=== PATIENT | female | born 2000 | race Caucasian/White ===

== ENCOUNTER → 2019-10-03 | Outpatient (CLI) | payer OTHER ==
[2019-10-03 13:11] LABS: BACTERIA (WET MOUNT) 4+ BACTERIA SEEN; EPITHELIALS (WET MOUNT) 4+ EPITHELIALS SEEN; T.VAGINALIS (WET MOUNT) NO TRICHOMONAS SEEN; WBCS (WET MOUNT) 2+ WBCS SEEN; YEAST (WET MOUNT) NO YEAST SEEN
== END ==
LOC: LAB 13:00
PROVIDERS: ATTEND Nurse Practitioner Acute Care
DX: R30.0 Dysuria (principal)
CPT/HCPCS: 87086; 87210

== ENCOUNTER 2019-10-22 09:04 | Day surgery (SDC) | payer OTHER ==
[~2019-10-22 09:04] MED LIST: LACTATED RINGERS 1000 ML IV PRN; LEVOFLOXACIN 500 MG/D5W RTU 500 MG/100 ML RTUPB IV PRN; LIDOCAINE 0.5% INJ-PF (5 MG/ML) 50 ML SDV SUBCUT PRN
[2019-10-22] MEDS ORDERED: DEXAMETHASONE SOD PHOS INJ 10 MG/1 ML VIAL ONE (10:01)
[2019-10-22] MEDS ORDERED: SUCCINYLCHOLINE CHLORIDE INJ 200 MG/10 ML VIAL ONE (10:01)
[2019-10-22] MEDS ORDERED: MIDAZOLAM 2 MG/2 ML INJ ONE (10:01)
[2019-10-22] MEDS ORDERED: ONDANSETRON HCL INJ/PF 4 MG/2 ML SDV ONE (10:01)
[2019-10-22] MEDS ORDERED: PROPOFOL INJ 200 MG/20 ML VIAL IV ONE (10:01)
[2019-10-22] MEDS ORDERED: RINGERS SOLUTION,LACTATED 200 ML IV PRN (10:04)
[2019-10-22] MEDS ORDERED: SCOPOLAMINE HYDROBROMIDE 1.5 MG PATCH.TD72 TD PRN (10:04)
[2019-10-22] MEDS ORDERED: FENTANYL CITRATE INJ/PF 100 MCG/2 ML AMPUL ONE ×2 (10:07→12:43)
[2019-10-22] MEDS ORDERED: COCAINE HCL 4% TOPICAL SOLN 4 ML ONE ×2 (10:09→10:12)
[2019-10-22] MEDS ORDERED: OXYMETAZOLINE HCL 0.05% NASAL SPRAY 15 ML BOTTLE ONE ×2 (10:09→10:13)
[2019-10-22] MEDS ORDERED: LIDOCAINE 2%/EPINEPHRINE INJ 1.7 ML CARTRIDGE ONE ×3 (10:09→10:40)
[2019-10-22] MEDS ORDERED: BUPIVACAINE HCL 0.5%/EPI 1:200000 INJ 1.8 ML CARTRIDGE ONE (10:10)
[2019-10-22] MEDS ORDERED: BACITRACIN ZINC OINTMENT 15 GM ONE (10:12)
--- NOTE | 2019-10-22 12:56 | Operative Report ---
Operative Report-[facility] Operative Report: Date: 22 October 2019 History: 19-year-old female presents with a history of nasal dyspnea and trauma tic nasal deformity. Physical exam revealed a deviated nasal septum, external nasal deformity and inferior turbinate hypertrophy. The external nasal deformity consisted of a dorsal hump which appeared to be mostly osseous. Presents today for a septorhinoplasty and turbinate reduction. Informed consent was obtained from the patient. Pre-operative diagnosis: 1. Deviated nasal septum 2. Inferior turbinate hypertrophy, bilateral 3. Traumatic nasal deformity Post operative diagnosis: same as above. Procedure: 1. Rhinoplasty [CPT = 24049] 2. Septoplasty 3 . Inferior turbinate reduction, left side 4. Inferior turbinate reduction, right side Surgeon: Roni Landrum MD, FACS, [facility] Anesthia: GANGA Description of the procedure: After receiving informed consent, the patient was brought to the operating room and placed supine on the operating table. After successful induction and intubation by anesthesia, cottonoids soaked with 4% cocaine replaced into each nasal cavity for approximately five minutes. They were removed andthe septum along with the inferior turbinate were injected with 2% Xylocaine with 1:100,000 epinephrine. The cottonoids were replaced. The patient was then prepped and draped in a sterile fashion. The cottonoids where then removed. A number 15 blade was used to make a jade transfixtion incision on the left side. Next using a Xavier and then A Griffin elevator, a mucoperichondrial/mucoperiosteal flap was elevated back to the sphenoid rostrum. This was then elevated onto the nasal floor. A mucoperichondrial flap was elevated around the caudal edge of the septum and onto the right side. This exposed both sides of the cartilaginous/osseous septum. The osseocartilaginous junction was and a mucoperiosteal flap was elevated on the right side. Quezada scissors were used to make horizontal cuts in the perpendicular plate of the ethmoid bone, superiorly and inferiorly. Nancy-Caballero forceps were used to remove this. A vomeroethmoid spur was identified and the mucosa was carefully dissected from it. A V-chisel was used to remove this spur. An inferior cartilage spur was removed using a D knife . Maxillary crest was found to be deviated towards the left. This was removed using a V chisel. Kevin-Valle's were used to remove a high septal deflection in the area of the internal nasal valve. The septum was viewed with the flaps in place and found to be relatively straight. The middle turbinates were visible on both sides. The jade transfixion incision was closed using 4-0 chromic and a 4-0 plain gut whip stitch was used to secure the septal flaps. Attention was directed towards the rhinoplasty portion. An intercartilaginous incision was made on the left side. Using iris scissors the skin envelope was from underlying bone and cartilage. Aufricht retractor was placed and the dorsal hump was identified. It was found to be mostly osseous with a small cartilaginous portion. The dorsal hump was reduced incrementally using push/pull rasps. The rasping went from coarse to fine. The small cartilaginous portion was removed using a 15 blade. The nose was viewed from profile and the hump was adequately reduced. An open book deformity was not created, thus osteotomies were unnecessary. The intercartilaginous incision was closed using 4-0 chromic. Attention was then directed to the inferior turbinates where an inferior turbinate reduction was performed bilaterally. The Celon was used to perform an intramural cauterization bilaterally. Then each turbinate was medialized and then lateralized using a Sayer elevator . Silicon splints coated with bacitracin were placed into each nasal cavity and secured with a 2-0 prolene. Afrin soaked cottonoids were placed into each nasal cavity and secured to each other in front of the nose. The patient was then given back to anesthesia who successfully extubated them. The patient tolerated the procedure well without any complications. Estimated blood loss: 15 mL Fluids: 800 mL The patient was transferred to the post anesthesia care unit in stable condition with spontaneous respirations.
== END 2019-10-22 13:44 | disposition home or self-care (01) ==
LOC: SC 09:04
PROVIDERS: ATTEND Otolaryngology
DX: J34.2 Deviated nasal septum (principal); J34.3 Hypertrophy of nasal turbinates; M95.0 Acquired deformity of nose
CPT/HCPCS: 00160; 30420; 30802; J2250; J1956; J3490 ×3; J3010; J0330; J2405; J2704; J1100; 160

== ENCOUNTER → 2020-05-07 | Outpatient (CLI) | payer OTHER ==
--- NOTE | 2020-05-07 17:45 | RADIOLOGY REPORT (SQ) ---
EXAM DESCRIPTION: T SPINE AP/LAT IMAGES COMPLETED DATE/TIME: 05/07/2020 5:33 pm REASON FOR STUDY: (M54.6) PAIN IN THORACIC SPINE M54.6 PAIN IN THORACIC SPINE COMPARISON: None. NUMBER OF VIEWS: Two views. TECHNIQUE: AP and lateral radiographic images acquired of the thoracic spine. LIMITATIONS: None. FINDINGS: MINERALIZATION: Normal. ALIGNMENT: No significant scoliosis. VERTEBRAE: No fracture or bone lesion. Maintained height, normal segmentation. DISCS: No significant loss of height or significant narrowing. No large osteophytes. HARDWARE: None in the spine. MEDIASTINUM AND SOFT TISSUES: Normal heart size and aortic contour. No soft tissue abnormality. VISUALIZED LUNG WHITNEY: Clear. OTHER: No other significant finding. IMPRESSION: NO SIGNIFICANT RADIOGRAPHIC FINDING IN THE THORACIC SPINE. TECHNICAL DOCUMENTATION: JOB ID: [id number] [id number] 2010 [employer]- All Rights Reserved Reading location - IP/workstation name: [facility]
== END ==
LOC: OD 16:45
PROVIDERS: ATTEND Nurse Practitioner Family
DX: M54.6 Pain in thoracic spine (principal)
CPT/HCPCS: 72070